=== PATIENT | male | born 1985 | race African-American/Black ===

== ENCOUNTER 2021-04-29 22:48 | Inpatient (IN) ==
[2021-04-30] MEDS ORDERED: NITROGLYCERIN 2% OINT 1 INCH/GM PACK TOP ONE (01:49)
[2021-04-30] MEDS ORDERED: niCARdipine INJ 25 MG in SODIUM CHLORIDE 0.9% 240 ML IV PRN (02:00)
[2021-04-30] MEDS ORDERED: niCARdipine INJ 50 MG in SODIUM CHLORIDE 0.9% 230 ML IV PRN (02:01)
[2021-04-30] MEDS ORDERED: METOPROLOL TARTRATE 50 MG TABLET PO ONE (02:07)
[2021-04-30 02:42] LABS: Basophils % 0.3 % (0.0-0.8); Hematocrit 45.7 VOL% (42.0-52.0); Hemoglobin 15.3 GM/DL (14.0-18.0); Immature Granulocytes % 0.3 %; Immature Granulocytes Absolute 0.03 #; Lymphocytes # 0.8 10*3/uL (1.4-4.0); Lymphocytes % 7.4 % (21.2-54.2); Mean Corpuscular HGB Conc 33.5 GM/DL (32-36); Mean Corpuscular Volume 89.8 FL (87-102); Mean Platelet Volume 10.4 FL (9.6-12.0); Platelet Count 268 T/CUMM (130-400); Red Blood Count 5.09 MC/CUMM (3.8-5.5); White Blood Count 10.2 T/CUMM (4-12)
[2021-04-30 02:54] LABS: INR 1.2; PT Patient Result 12.8 SECS (10.5-12.0); Partial Thromboplastin Time 29.6 SECS (23.8-32.1)
[2021-04-30] MEDS ORDERED: NITROPRUSSIDE 100 MG in DEXTROSE 5% 246 ML IV PRN (03:00)
[2021-04-30] MEDS ORDERED: FUROSEMIDE 40 MG/4 ML VIAL IV ONE (03:00)
[2021-04-30] MEDS: POTASSIUM CHLORIDE 20 MEQ TABLET PO SCH ×4 (03:18→09:04)
[2021-04-30 03:21] LABS: Bilirubin,Urine Negative (Negative); Blood, Urine Negative (Negative); Glucose,Urine (UA) Negative (Negative); Ketones,Urine Negative (Negative); Nitrite,Urine Negative (Negative); Protein,Urine Negative; RBC,Urine 2 /HPF (0-4); Urine Appearance CLEAR (Clear); Urine Color Colorless (Yellow); Urine Specific Gravity 1.004 (1.001-1.035); Urine Urobilinogen < 2.0 EU/DL (0.2-1.0)
[2021-04-30] MEDS ORDERED: ALBUTEROL 2.5 MG/3 ML NEB RESP TX PRN (03:35)
[2021-04-30] MEDS ORDERED: ACETAMINOPHEN 325 MG TABLET PO PRN (03:36)
[2021-04-30] MEDS ORDERED: ONDANSETRON 4 MG/2 ML VIAL IV PRN (03:36)
[2021-04-30] MEDS ORDERED: DOCUSATE SODIUM 100 MG CAPSULE PO PRN (03:36)
[2021-04-30] MEDS ORDERED: MORPHINE 2 MG/1 ML SYRINGE IV PRN (03:36)
[2021-04-30 04:21] LABS: Albumin 3.7 G/DL (3.4-5.0); Bilirubin,Total 0.6 MG/DL (0.20-1.00); Calcium 8.7 MG/DL (8.5-10.1); Potassium 4.4 MMOL/L (3.5-5.1)
[2021-04-30] MEDS ORDERED: NITROPRUSSIDE 50 MG/2 ML VIAL ONE (04:46)
[2021-04-30] MEDS: METOPROLOL TARTRATE 100 MG TABLET PO SCH ×3 (04:50→20:49)
[2021-04-30] MEDS: niCARdipine INJ 50 MG in SODIUM CHLORIDE 0.9% 480 ML IV PRN ×2 (06:19→14:48)
[2021-04-30 07:41] LABS: Barbiturates Screen,Urine Negative (Negative); Benzodiazepines Screen,Urine Negative (Negative); Cannabinoid Screen,Urine Positive (Negative); Opiate Screen,Urine Negative (Negative); Phencyclidine Screen,Urine Negative (Negative)
[2021-04-30 07:58] LABS: Risk Ratio 2.84; VLDL Cholesterol 8.8 MG/DL
[2021-04-30] MEDS ORDERED: MAGNESIUM SULF RIDER 2 GM/50 ML PREMIX IV ONE ×2 (08:00→09:37)
[2021-04-30] MEDS ORDERED: ENOXAPARIN 100 MG/ML SYRINGE SUBCUT SCH (09:00)
[2021-04-30] MEDS ORDERED: ALPRAZolam 0.5 MG TABLET PO PRN (09:03)
[2021-04-30] MEDS ORDERED: ASPIRIN EC 325 MG TABLET PO SCH (09:30)
[2021-04-30] MEDS ORDERED: lisinopriL 10 MG TABLET PO SCH (09:48)
[2021-04-30] MEDS: amLODIPine 10 MG TABLET PO SCH (10:21)
[2021-04-30] MEDS: FUROSEMIDE 40 MG/4 ML VIAL IV SCH (15:53)
[2021-04-30 16:00] VITALS: BP 185/108
[2021-04-30] MEDS: ATORVASTATIN 40 MG TABLET PO SCH (20:50)
[2021-05-01 04:01] LABS: Basophils % 0.4 % (0.0-0.8); Eosinophils # 0.2 10*3/uL (0.0-0.87); Eosinophils % 2.1 % (0.00-10.9); Hematocrit 44.4 VOL% (42.0-52.0); Hemoglobin 14.9 GM/DL (14.0-18.0); Immature Granulocytes % 0.3 %; Immature Granulocytes Absolute 0.02 #; Lymphocytes # 1.1 10*3/uL (1.4-4.0); Lymphocytes % 14.2 % (21.2-54.2); Mean Corpuscular HGB Conc 33.6 GM/DL (32-36); Mean Corpuscular Volume 90.4 FL (87-102); Mean Platelet Volume 11.1 FL (9.6-12.0); Monocytes % 12.1 % (1.7-12.7); Neutrophils % 70.9 % (38.7-73.9); Platelet Count 222 T/CUMM (130-400); Red Blood Count 4.91 MC/CUMM (3.8-5.5); Red Cell Distribution Width 14.3 % (9.3-17.3); White Blood Count 7.5 T/CUMM (4-12)
[2021-05-01 04:22] LABS: Calcium 8.4 MG/DL (8.5-10.1); Osmolality,Calculated 279.4 MOS/KG (273-304); Potassium 3.3 MMOL/L (3.5-5.1)
[2021-05-01 04:25] LABS: Albumin 2.9 G/DL (3.4-5.0); Bilirubin,Total 0.7 MG/DL (0.20-1.00); Calcium 8.4 MG/DL (8.5-10.1); Osmolality,Calculated 275.7 MOS/KG (273-304); Potassium 3.3 MMOL/L (3.5-5.1); Total Protein 6.8 G/DL (6.4-8.2)
[2021-05-01 04:25] LABS: Free T4 (Free Thyroxine) 1.2 NG/DL (0.76-1.46); Thyroid Stimulating Hormone 0.603 uIU/ml (0.358-3.74)
[2021-05-01] MEDS ORDERED: lisinopriL 10 MG TABLET PO SCH (09:00)
[2021-05-01] MEDS: FUROSEMIDE 40 MG/4 ML VIAL IV SCH (09:27)
[2021-05-01] MEDS: ASPIRIN EC 81 MG TABLET PO SCH (09:27)
[2021-05-01] MEDS: CLOPIDOGREL 75 MG TABLET PO SCH (09:28)
[2021-05-01] MEDS: POTASSIUM CHLORIDE 20 MEQ TABLET PO PRN ×3 (09:28→19:50)
[2021-05-01] MEDS: METOPROLOL TARTRATE 100 MG TABLET PO SCH (09:28)
[2021-05-01] MEDS: amLODIPine 10 MG TABLET PO SCH (09:31)
[2021-05-01] MEDS: SPIRONOLACTONE 25 MG TABLET PO SCH (09:34)
[2021-05-01] MEDS: hydrALAZINE 20 MG/1 ML VIAL IV PRN ×2 (13:42→19:50)
[2021-05-01] MEDS ORDERED: LABETALOL 20 MG/4 ML SYRINGE IV ONE (15:55)
[2021-05-01] MEDS: carvediloL 25 MG TABLET PO SCH ×2 (16:30→23:11)
[2021-05-01] MEDS: SACUBITRIL/VALSARTAN 49-51 MG TABLET PO SCH (16:30)
[2021-05-01] MEDS ORDERED: ALPRAZolam 0.25 MG TABLET PO ONE (20:00)
[2021-05-01] MEDS: ATORVASTATIN 40 MG TABLET PO SCH (20:01)
[2021-05-02 04:03] LABS: Basophils % 0.5 % (0.0-0.8); Eosinophils # 0.1 10*3/uL (0.0-0.87); Eosinophils % 1.8 % (0.00-10.9); Hematocrit 44.4 VOL% (42.0-52.0); Hemoglobin 14.7 GM/DL (14.0-18.0); Immature Granulocytes % 0.3 %; Immature Granulocytes Absolute 0.02 #; Lymphocytes # 0.9 10*3/uL (1.4-4.0); Mean Corpuscular HGB Conc 33.1 GM/DL (32-36); Mean Corpuscular Volume 89.9 FL (87-102); Mean Platelet Volume 10.2 FL (9.6-12.0); Monocytes % 13.8 % (1.7-12.7); Neutrophils % 71.6 % (38.7-73.9); Platelet Count 256 T/CUMM (130-400); Red Blood Count 4.94 MC/CUMM (3.8-5.5); Red Cell Distribution Width 14.2 % (9.3-17.3); White Blood Count 7.7 T/CUMM (4-12)
[2021-05-02 04:38] LABS: Calcium 8.4 MG/DL (8.5-10.1); Osmolality,Calculated 278.4 MOS/KG (273-304); Potassium 3.7 MMOL/L (3.5-5.1)
[2021-05-02 04:42] LABS: Albumin 2.8 G/DL (3.4-5.0); Bilirubin,Total 1.2 MG/DL (0.20-1.00); Calcium 8.6 MG/DL (8.5-10.1); Osmolality,Calculated 275.5 MOS/KG (273-304); Potassium 3.4 MMOL/L (3.5-5.1); Total Protein 6.9 G/DL (6.4-8.2)
[2021-05-02] MEDS ORDERED: FUROSEMIDE 40 MG TABLET PO SCH (09:00)
[2021-05-02] MEDS ORDERED: POTASSIUM CHLORIDE 20 MEQ TABLET PO ONE (09:54)
[2021-05-02] MEDS: ASPIRIN EC 81 MG TABLET PO SCH (10:39)
[2021-05-02] MEDS: SPIRONOLACTONE 25 MG TABLET PO SCH (10:40)
[2021-05-02] MEDS: SACUBITRIL/VALSARTAN 49-51 MG TABLET PO SCH (10:40)
[2021-05-02] MEDS: CLOPIDOGREL 75 MG TABLET PO SCH (10:40)
[2021-05-02] MEDS: carvediloL 25 MG TABLET PO SCH (10:40)
[2021-05-02] MEDS: amLODIPine 10 MG TABLET PO SCH (10:40)
[2021-05-02] MEDS ORDERED: INFLUENZA VIRUS VACCINE 0.5 ML SYRINGE IM ONE (12:09)
[2021-05-03] MEDS ORDERED: FUROSEMIDE 80 MG TABLET PO SCH (09:00)
== END 2021-05-02 12:42 | disposition home or self-care (01) | DRG 64 ==
LOC: SUATTDRO 04-30 01:04 → N.CC 04-30 01:04
PROVIDERS: ADMIT Family Medicine; ATTEND Internal Medicine